=== PATIENT | female | born 1980 | race Caucasian/White ===

== ENCOUNTER 2022-07-16 07:56 | Day surgery (SDC) | payer OTHER ==
[2022-07-16] MEDS ORDERED: BUPROPION100 MG PO (09:39)
[2022-07-16] MEDS ORDERED: NP THYROID120 MG PO (09:40)
[2022-07-16] MEDS ORDERED: CORLANOR7.5 MG PO (09:40)
[2022-07-16] MEDS ORDERED: PROTONIX40 M2 PO (09:41)
[2022-07-16] MEDS ORDERED: NALTREXONE50 MG PO (09:43)
[2022-07-16] MEDS ORDERED: ADDERALL30 MG PO (09:43)
[2022-07-16] MEDS ORDERED: BISOPROL FUM5 MG PO (09:44)
[2022-07-16] MEDS ORDERED: PYRIDOSTIGMINE60 MG PO (09:45)
[2022-07-16] MEDS ORDERED: FLUDROCORTISON0.1 MG PO (09:45)
[2022-07-16] MEDS ORDERED: FAMOTIDINE20 M1 PO (09:46)
[2022-07-16] MEDS ORDERED: MEMANTINE HYDRO10 MG PO (09:47)
[2022-07-16] MEDS ORDERED: MECLIZINE25 MG PO (09:49)
[2022-07-16] MEDS ORDERED: UBRELVY50 MG (09:49)
[2022-07-16] MEDS ORDERED: DIAZEPAM5 MG PO (09:50)
[2022-07-16] MEDS ORDERED: ALBUTEROL SUL0.083 % IN (09:51)
[2022-07-16] MEDS ORDERED: METHOCARBAMOL500 MG PO (09:51)
[2022-07-16] MEDS ORDERED: VIT C/BIOFLV1000 MG PO (09:52)
[2022-07-16] MEDS ORDERED: [UNRECOGNIZED DRUG - OTHER] PO (09:53)
[2022-07-16] MEDS ORDERED: PREBIOTIC PO (09:54)
[2022-07-16] MEDS ORDERED: [UNRECOGNIZED DRUG - OTHER] PO (09:54)
[2022-07-16] MEDS ORDERED: ZINC50 MG PO (09:55)
[2022-07-16] MEDS ORDERED: N-ACETYL-L-CYSTEINE PO (09:56)
[2022-07-16] MEDS ORDERED: TOPAMAX50 M1 PO (10:31)
[2022-07-16] MEDS ORDERED: ABILIFY2 MG PO (10:32)
[2022-07-16 10:37] VITALS: BP 104/74
[2022-07-16] MEDS ORDERED: [UNRECOGNIZED DRUG - CODE] SC (10:40)
[2022-07-16] MEDS ORDERED: ATOMOXETINE60 MG PO (10:42)
[2022-07-16] MEDS ORDERED: NIACIN250 M3 PO (10:45)
== END 2022-07-16 10:23 | disposition home or self-care (01) ==
LOC: ORM 07:56
PROVIDERS: ATTEND Physical Medicine & Rehabilitation
DX: M46.1 Sacroiliitis, not elsewhere classified (principal); M47.898 Other spondylosis, sacral and sacrococcygeal region; G89.4 Chronic pain syndrome; M79.7 Fibromyalgia
CPT/HCPCS: J3490

== ENCOUNTER 2022-09-10 07:54 | Day surgery (SDC) | payer OTHER ==
[~2022-09-10] VITALS: Ht 172.7 cm; Wt 88.9 kg
[~2022-09-10 07:54] MED LIST: ABILIFY2 MG PO; ADDERALL30 MG PO; ALBUTEROL SUL0.083 % IN; ATOMOXETINE60 MG PO; BISOPROL FUM5 MG PO; BUPROPION100 MG PO; CORLANOR7.5 MG PO; DIAZEPAM5 MG PO; FAMOTIDINE20 M1 PO; FLUDROCORTISON0.1 MG PO; MECLIZINE25 MG PO; MEMANTINE HYDRO10 MG PO; METHOCARBAMOL500 MG PO; N-ACETYL-L-CYSTEINE PO; NALTREXONE50 MG PO; NIACIN250 M3 PO; NP THYROID120 MG PO; PREBIOTIC PO; PROTONIX40 M2 PO; PYRIDOSTIGMINE60 MG PO; TOPAMAX50 M1 PO; UBRELVY50 MG; VIT C/BIOFLV1000 MG PO; ZINC50 MG PO; [UNRECOGNIZED DRUG - CODE] SC; [UNRECOGNIZED DRUG - OTHER] PO; [UNRECOGNIZED DRUG - OTHER] PO
[2022-09-10 10:06] VITALS: BP 107/67
== END 2022-09-10 10:35 | disposition home or self-care (01) ==
LOC: ORM 07:54
PROVIDERS: ATTEND Physical Medicine & Rehabilitation Pain Medicine
DX: M46.1 Sacroiliitis, not elsewhere classified (principal)

== ENCOUNTER 2022-10-15 08:29 | Day surgery (SDC) | payer OTHER ==
[~2022-10-15] VITALS: Ht 172.7 cm; Wt 88.0 kg
[2022-10-15 11:09] VITALS: BP 119/73
== END 2022-10-15 11:10 | disposition home or self-care (01) ==
LOC: ORM 08:29
PROVIDERS: ATTEND Physical Medicine & Rehabilitation Pain Medicine
DX: M46.1 Sacroiliitis, not elsewhere classified (principal); M53.3 Sacrococcygeal disorders, not elsewhere classified; M47.817 Spondylosis without myelopathy or radiculopathy, lumbosacral region; Z01.818 Encounter for other preprocedural examination; Z11.59 Encounter for screening for other viral diseases

== ENCOUNTER 2023-07-08 08:18 | Day surgery (SDC) | payer OTHER ==
[~2023-07-08] VITALS: Ht 172.7 cm; Wt 81.2 kg
[2023-07-08 08:50] LABS: HCG SERUM/URINE (NEG/POS) NEGATIVE (NEGATIVE)
[2023-07-08 12:24] VITALS: BP 115/85
== END 2023-07-08 11:45 | disposition home or self-care (01) ==
LOC: PO 08:18 → ORM 08:18
PROVIDERS: ATTEND Physical Medicine & Rehabilitation
DX: G89.4 Chronic pain syndrome (principal); M79.7 Fibromyalgia; M46.1 Sacroiliitis, not elsewhere classified